=== PATIENT | female | born 1940 | race Caucasian/White ===

== ENCOUNTER 2018-01-15 08:25 | Day surgery (SDC) | payer MEDICARE, BC ==
[~2018-01-15 08:25] MED LIST: Cefuroxime 10 MG/ML SYRINGE EYERT SCH; Lidocaine 1% PF 2 ML SDV INJECT SCH; Pilocarpine 4% Ophth Soln 15 ML Bot EYERT SCH
[2018-01-15] MEDS: Polymyxin B/Trimethoprim 10 ML Bottle EYERT SCH ×3 (08:58→10:36)
[2018-01-15] MEDS: Brimonidine 0.2% Ophth Soln 5 ML Bottle EYERT SCH ×3 (09:03→10:36)
[2018-01-15] MEDS: Phenylephrine 2.5% Ophth Soln 2 ML Bot EYERT SCH ×5 (09:08→10:09)
[2018-01-15] MEDS: Tropicamide 1% Ophth Soln 3 ML Bottle EYERT SCH ×4 (09:13→09:58)
--- NOTE | 2018-01-15 09:14 | PCM.PREANE ---
Preanesthetic Assessment - Anesthesia/Transfusion/Family Hx Anesthesia History: Prior Anesthesia Reaction Type of Anesthesia Reaction: Excessive Somnolence Family History of Anesthesia Reaction: No - Review of Systems General: No Symptoms Pulmonary: Cough (Chronic cough mostly in the mornings. Nonproductive.) Cardiovascular: Palpitations (Negative cardiac workup a few years ago. PVCs noted. Negative Stress Test. Murmur noted. ), Other (Hypertension) Neurological: No Symptoms Other: Reports: None - Physical Assessment NPO Status Date: 01/15/18 NPO Status Time: 05:00 O2 Sat by Pulse Oximetry: 98 Respiratory Rate: 16 Vital Signs: Last Vital Signs Temp 36.5 C 01/15/18 08:48 Pulse 58 L 01/15/18 08:48 Resp 16 01/15/18 08:48 BP 138/77 01/15/18 08:48 Pulse Ox 98 01/15/18 08:48 Height: 1.52 m Weight: 65.771 kg ASA Class: 2 Mental Status: Alert & Oriented x3 Airway Class: Mallampati = 2 Dentition: Reports: Partial Thyro-Mental Finger Breadths: 2 Mouth Opening Finger Breadths: 3 ROM/Head Extension: Full Lungs: Clear to Auscultation, Normal Respiratory Effort Cardiovascular: Regular Rate, Regular Rhythm, Murmurs - Allergies Allergies/Adverse Reactions: Allergies Allergy/AdvReac Type Severity Reaction Status Date / Time No Known Allergies Allergy Verified 01/14/18 12:47 - Anesthesia Plan Beta Jeremiah: Metoprolol Med Last Dose Date: 01/15/18 (0600) - Acknowledgements Anesthesia Type Planned: MAC Pt an Appropriate Candidate for the Planned Anesthesia: Yes Alternatives and Risks of Anesthesia Discussed w Pt/Guardian: Yes Pt/Guardian Understands and Agrees with Anesthesia Plan: Yes PreAnesthesia Questionnaire - HOME MEDS Home Medications: Home Meds Calcium Carbonate [Tums Extra Strength] 750 mg PO DAILY PRN 01/14/18 [History] Hydrochlorothiazide 12.5 mg PO DAILY 01/14/18 [History] Latanoprost [Xalatan] 1 drop OP BEDTIME 01/14/18 [History] Lisinopril 10 mg PO DAILY 01/14/18 [History] Metoprolol Succinate [Toprol XL 100mg] 100 mg PO DAILY 01/14/18 [History] - CURRENT (IN HOUSE) MEDS Current Meds: Current Medications Brimonidine Tartrate (Alphagan 0.2% Ophth Soln) 0 ml EYERT ASDIRECTED NANCY Stop: 01/15/18 18:00 Last Admin: 01/15/18 09:03 Dose: 1 drop Cefuroxime Sodium (Zinacef) 0 mg EYERT ASDIRECTED NANCY Stop: 01/15/18 18:00 Lidocaine HCl (Xylocaine-Mpf 1%) 0 ml INJECT ASDIRECTED NANCY Stop: 01/15/18 18:00 Phenylephrine HCl (Mario-Synephrine 2.5% Ophth Soln) 0 ml EYERT ASDIRECTED NANCY Stop: 01/15/18 18:00 Pilocarpine HCl (Pilocar 4% Ophth Soln) 0 ml EYERT ASDIRECTED NANCY Stop: 01/15/18 18:00 Polymyxin/Trimethoprim Sulfate (Polytrim Ophth Soln) 0 ml EYERT ASDIRECTED NANCY Stop: 01/15/18 18:00 Last Admin: 01/15/18 08:58 Dose: 1 drop Tetracaine HCl (Tetracaine 0.5% Steri-Unit Anastasia) 0 ml EYERT ASDIRECTED NANCY Stop: 01/15/18 18:00 Tropicamide (Mydriacyl 1% Ophth Soln) 0 ml EYERT ASDIRECTED NANCY Stop: 01/15/18 18:00
[2018-01-15] MEDS: Tetracaine HCl/PF 0.5% 4 ML Bottle EYERT SCH ×2 (10:01→10:23)
--- NOTE | 2018-01-15 10:35 | PCM48HPAN ---
Post Anesthesia Note - EVALUATION WITHIN 48HRS OF ANESTHETIC Vital Signs in Normal Range: Yes Patient Participated in Evaluation: Yes Respiratory Function Stable: Yes Airway Patent: Yes Cardiovascular Function Stable: Yes Hydration Status Stable: Yes Pain Control Satisfactory: Yes Nausea and Vomiting Control Satisfactory: Yes Mental Status Recovered: Yes
== END 2018-01-15 10:49 | disposition home or self-care (01) ==
LOC: JD.SDS 08:25
PROVIDERS: ATTEND Ophthalmology
DX: H25.813 Combined forms of age-related cataract, bilateral (principal); I10 Essential (primary) hypertension; E78.00 Pure hypercholesterolemia, unspecified; Z87.891 Personal history of nicotine dependence; H40.1132 Primary open-angle glaucoma, bilateral, moderate stage; H35.363 Drusen (degenerative) of macula, bilateral; H02.831 Dermatochalasis of right upper eyelid; H35.3131 Nonexudative age-related macular degeneration, bilateral, early dry stage; Z79.899 Other long term (current) drug therapy
CPT/HCPCS: 66984; C1780; J0697; J2001; A9270-GY

== ENCOUNTER 2019-06-18 11:50 | Emergency (ER) | payer MEDICARE, BC ==
[2019-06-18] MEDS ORDERED: Sodium Chloride 0.9% 10 ML Syringe FLUSH PRN (12:18)
[2019-06-18] MEDS ORDERED: Glucagon,Human Recombinant 1 MG Vial IVPUSH ONE (12:18)
[2019-06-18] MEDS ORDERED: fentaNYL 100 MCG/2 ML SDV IVPUSH ONE (12:19)
--- NOTE | 2019-06-18 12:26 | EDM.PDOC ---
ED HPI GENERAL MEDICAL PROBLEM - General Chief Complaint: ENT Problem Stated Complaint: VOMITING/CANT KEEP FOOD DOWN Time Seen by Provider: 06/18/19 12:09 Source of Information: Reports: Patient, RN Notes Reviewed History Limitations: Reports: No Limitations - History of Present Illness INITIAL COMMENTS - FREE TEXT/NARRATIVE: Patient is a 78-year-old female who presents to the ED for the evaluation of a food impaction bolus. The patient states that she was eating pork roast last night, when she believes a piece of this got caught in her distal esophagus around 4 PM yesterday. She notes she is having difficulty swallowing since then. Typically symptoms last about an hour and then they subside usually, and she notes that she has issues with this roughly 3 or 4 times per year. She is able to swallow however she states everything keeps coming back up. She is not having any chest pain, shortness of breath, nausea or vomiting, but she has not been able to keep much down for foods or fluids. She further notes an increased production in saliva with this. She notes that she has had upper GIs in the past, but she has not had any sort of esophageal dilatation for this that she can remember. Abdomen Pain Score (Numeric/FACES): 6 - Related Data Allergies Allergy/AdvReac Type Severity Reaction Status Date / Time No Known Allergies Allergy Verified 06/18/19 12:09 Home Meds: Home Meds Calcium Carbonate [Tums Extra Strength] 750 mg PO DAILY PRN 01/14/18 [History] Metoprolol Succinate [Toprol XL 100mg] 100 mg PO DAILY 01/14/18 [History] Calcium Carbonate [Tums] 1 tab PO BEDTIME PRN 03/29/18 [History] Latanoprost/Pf [Latanoprost 0.005% Eye Drop] 1 drop EYEBOTH BEDTIME 03/29/18 [ History] Lisinopril 10 mg PO DAILY 03/29/18 [History] Aspirin 81 mg PO DAILY 06/18/19 [History] Propylene Glycol/Peg 400 [Systane 0.3-0.4% Eye Drops] 10 ml OP DAILY PRN [History] Past Medical History HEENT History: Reports: Cataract, Glaucoma, Impaired Vision Cardiovascular History: Reports: High Cholesterol, Hypertension Respiratory History: Reports: Pneumonia, Recurrent Gastrointestinal History: Reports: [employer]IST History: Reports: Musculoskeletal History: Reports: Back Pain, Chronic, Osteoarthritis Neurological History: Reports: None Psychiatric History: Reports: None Endocrine/Metabolic History: Reports: None Hematologic History: Reports: None Immunologic History: Reports: None Oncologic (Cancer) History: Reports: Squamous Cell Carcinoma Dermatologic History: Reports: Other (See Below) Other Dermatologic History: skin cancer-by the nose-surgically removed - Infectious Disease History Infectious Disease History: Reports: None - Past Surgical History Head Surgeries/Procedures: Reports: None HEENT Surgical History: Reports: Cataract Surgery, Tonsillectomy Female Surgical History: Reports: Tubal Ligation Oncologic Surgical History: Reports: Other (See Below) Social & Family History - Tobacco Use Smoking Status *Q: Never Smoker - Caffeine Use Caffeine Use: Reports: Coffee - Recreational Drug Use Recreational Drug Use: No - Living Situation & Occupation Living situation: Reports: , with Spouse Occupation: Retired ED ROS ENT - Review of Systems Review Of Systems: See Below Constitutional: Reports: No Symptoms HEENT: Reports: No Symptoms Respiratory: Denies: Shortness of Breath Cardiovascular: Denies: Chest Pain Endocrine: Reports: No Symptoms GI/Abdominal: Reports: Difficulty Swallowing (food impaction bolus). Denies: Abdominal Pain, Constipation, Diarrhea, Nausea, Vomiting : Reports: No Symptoms Musculoskeletal: Reports: No Symptoms Skin: Reports: No Symptoms Neurological: Reports: No Symptoms Psychiatric: Reports: No Symptoms Hematologic/Lymphatic: Reports: No Symptoms ED EXAM, ENT - Physical Exam Exam: See Below Exam Limited By: No Limitations General Appearance: Alert, WD/WN, No Apparent Distress (pt has emesis bag at bedside, and keeps spitting saliva into this) Mouth/Throat: Normal Inspection, Normal Gums, Normal Lips, Normal Oropharynx, Normal Teeth Head: Atraumatic, Normocephalic Neck: Normal Inspection, Supple, Non-Tender, Full Range of Motion Respiratory/Chest: No Respiratory Distress, Lungs Clear, Normal Breath Sounds, No Accessory Muscle Use, Chest Non-Tender Cardiovascular: Normal Peripheral Pulses, Regular Rate, Rhythm, No Murmur GI/Abdominal: Normal Bowel Sounds, Soft, Non-Tender, No Distention, No Mass Extremities: Normal Inspection, Normal Capillary Refill Neurological: Alert, Oriented, Normal Cognition, No Motor/Sensory Deficits Psychiatric: Normal Affect, Normal Mood Skin: Warm, Dry, Intact, Normal Color, No Rash Course - Vital Signs Last Recorded V/S: Last Vital Signs Temp 98.5 F 06/18/19 13:10 Pulse 94 06/18/19 13:10 Resp 16 06/18/19 13:10 BP 189/104 H 06/18/19 13:10 Pulse Ox 100 06/18/19 13:10 - Orders/Labs/Meds Orders: Active Orders 24 hr Category Date Time Status Peripheral IV Care [RC] . DIRECTED Care 06/18/19 12:18 Active Peripheral IV Insertion Adult [OM.PC] Stat Oth 06/18/19 12:18 Ordered Meds: Medications Discontinued Medications Generic Name Dose Route Start Last Admin Trade Name Freq PRN Reason Stop Dose Admin Fentanyl 50 mcg 06/18/19 12:19 06/18/19 12:30 Sublimaze IVPUSH 06/18/19 12:20 50 mcg ONETIME ONE Administration Glucagon 1 mg 06/18/19 12:18 06/18/19 12:34 Glucagen IVPUSH 06/18/19 12:19 1 mg ONETIME ONE Administration Sodium Chloride 10 ml 06/18/19 12:18 06/18/19 12:32 Saline Flush FLUSH 10 ml ASDIRECTED PRN Administration Keep Vein Open - Re-Assessments/Exams Free Text/Narrative Re-Assessment/Exam: 06/18/19 12:26 Patient resents to the ED for evaluation of a food impaction bolus. Did order IV be placed with 1 mg glucagon, 50 g of fentanyl to be given, patient will be given Cola to drink after these meds been given to see if this helps dislodge the bolus, plan is to consult surgery if these measures are unsuccessful. 06/18/19 13:19 Patient was observed, after medications were given, and she believes that the food bolus has emptied in her stomach at this time. We'll discharge her home with general recommendations. Departure - Departure Time of Disposition: 13:20 Disposition: Home, Self-Care 01 Condition: Fair Clinical Impression: Food impaction of esophagus Qualifiers: Encounter type: initial encounter Qualified Code(s): T18.128A - Food in esophagus causing other injury, initial encounter - Discharge Information *PRESCRIPTION DRUG MONITORING PROGRAM REVIEWED*: No *COPY OF PRESCRIPTION DRUG MONITORING REPORT IN PATIENT [place]: No Instructions: Dysphagia Eating Plan, Bite Size Food Referrals: Sina Florentino MD [Primary Care Provider] - Forms: ED Department Discharge Additional Instructions: You were evaluated in the ER today regarding your food impaction bolus stuck in your esophagus. You were given a combination IV medications, and this seemed to help the food bolus pass in to your stomach. Recommend that you follow up with a general surgeon of choice, for a possible upper endoscopy with esophageal dilatation to help relieve further episodes of this. Our [facility] clinic number is [phone], the [facility] number is . Recommend that you try to stay away from meats, as these are the most common offender food impaction boluses, if you do want to eat meat, make sure you you chew your food very thoroughly. Please return to the ED if your symptoms should change or worsen. - My Orders Last 24 Hours: My Active Orders 06/18/19 12:18 Peripheral IV Care [RC] . DIRECTED Peripheral IV Insertion Adult [OM.PC] Stat - Assessment/Plan Last 24 Hours: My Active Orders 06/18/19 12:18 Peripheral IV Care [RC] . DIRECTED Peripheral IV Insertion Adult [OM.PC] Stat
== END 2019-06-18 13:44 | disposition home or self-care (01) ==
LOC: JD.ED 11:50
DX: T18.128A Food in esophagus causing other injury, initial encounter (principal); I10 Essential (primary) hypertension; H40.9 Unspecified glaucoma; Z79.899 Other long term (current) drug therapy; Z79.82 Long term (current) use of aspirin; Y93.89 Activity, other specified
CPT/HCPCS: 96374; 96375; 99283; J1610; J3010

== ENCOUNTER 2024-05-06 09:09 | Day surgery (SDC) | payer MEDICARE, BC ==
[~2024-05-06 09:09] MED LIST changes: -Cefuroxime 10 MG/ML SYRINGE EYERT SCH; +HYDROmorphone 0.5 MG/0.5 ML Syringe IVPUSH PRN; -Lidocaine 1% PF 2 ML SDV INJECT SCH; +Ondansetron 4 MG/2 ML SDV IVPUSH PRN; -Pilocarpine 4% Ophth Soln 15 ML Bot EYERT SCH; +Sodium Chloride 0.9% 10 ML Syringe FLUSH PRN; +fentaNYL 100 MCG/2 ML SDV IVPUSH PRN
[2024-05-06] MEDS: Lactated Ringers 1,000 ML IV SCH (10:10)
[2024-05-06] MEDS ORDERED: Propofol 200 MG/20 ML SDV ONE (10:37)
[2024-05-06] MEDS ORDERED: Lidocaine 1% 2 ML ONE (10:38)
[2024-05-06] MEDS: Iopamidol 755 Mg/ML 100 ML Bottle IVPUSH ONE (11:50)
[2024-05-06] MEDS: Sodium Chloride 0.9% 10 ML Syringe FLUSH SCH (11:50)
[2024-05-06] MEDS ORDERED: Sodium Chloride 0.9% 10 ML Syringe FLUSH PRN (12:00)
== END 2024-05-06 11:55 | disposition home or self-care (01) ==
LOC: JD.SDS 09:09
PROVIDERS: ATTEND Surgery
DX: K31.7 Polyp of stomach and duodenum (principal); K31.A0 Gastric intestinal metaplasia, unspecified; K22.10 Ulcer of esophagus without bleeding; K44.9 Diaphragmatic hernia without obstruction or gangrene; K22.2 Esophageal obstruction; K21.9 Gastro-esophageal reflux disease without esophagitis; I10 Essential (primary) hypertension; E78.00 Pure hypercholesterolemia, unspecified; Z88.5 Allergy status to narcotic agent; Z88.8 Allergy status to other drugs, medicaments and biological substances; Z79.899 Other long term (current) drug therapy; Z87.891 Personal history of nicotine dependence; Z79.82 Long term (current) use of aspirin
CPT/HCPCS: 43239; 71260; 74177; J2704; J3490; J7120; Q9967; 00731; 88305; 99100

== ENCOUNTER 2024-05-13 09:59 | Day surgery (SDC) | payer MEDICARE, BC ==
[~2024-05-13 09:59] MED LIST changes: -HYDROmorphone 0.5 MG/0.5 ML Syringe IVPUSH PRN; -Ondansetron 4 MG/2 ML SDV IVPUSH PRN; +Sodium Chloride 0.9% 10 ML Syringe FLUSH SCH; -fentaNYL 100 MCG/2 ML SDV IVPUSH PRN
[2024-05-13] MEDS: Lactated Ringers 1,000 ML IV SCH (10:50)
[2024-05-13] MEDS ORDERED: Lidocaine 1% 4 ML ONE (12:03)
[2024-05-13] MEDS ORDERED: Propofol 200 MG/20 ML SDV ONE ×3 (12:03→13:02)
[2024-05-13] MEDS ORDERED: dexmedeTOMIDine HCl 200 MCG/2 ML SDV ONE (13:05)
[2024-05-13] MEDS ORDERED: Metoclopramide 10 MG/2 ML SDV IVPUSH PRN (14:23)
== END 2024-05-13 14:45 | disposition home or self-care (01) ==
LOC: JD.SDS 09:59
PROVIDERS: ATTEND Surgery
DX: K31.7 Polyp of stomach and duodenum (principal); I10 Essential (primary) hypertension; E78.00 Pure hypercholesterolemia, unspecified; K21.9 Gastro-esophageal reflux disease without esophagitis; Z87.891 Personal history of nicotine dependence; Z79.899 Other long term (current) drug therapy; Z88.5 Allergy status to narcotic agent
CPT/HCPCS: 00731; 99100; J2704; J3490; J7120

== ENCOUNTER 2024-05-16 11:15 | Inpatient (IN) | payer MEDICARE, BC ==
[2024-05-16 11:14] LABS: HEMATOCRIT 43.9 % (37.0-47.0); HEMOGLOBIN 14.8 gm/dl (12.0-16.0); MEAN CORPUSCULAR HEMOGLOBIN 30.1 pg (28.0-32.0); MEAN CORPUSCULAR HGB CONC 33.7 g/dl (32.0-36.0); MEAN CORPUSCULAR VOLUME 89.4 fl (83.0-99.0); PLATELET COUNT,PLT 226 K/mm3 (150-400); RED BLOOD CELL COUNT 4.91 M/mm3 (4.10-5.30); WHITE BLOOD CELL COUNT,WBC 7.54 K/mm3 (3.9-11.3)
[2024-05-16] MEDS ORDERED: Ondansetron 4 MG/2 ML SDV ONE ×2 (11:20→15:58)
[2024-05-16] MEDS ORDERED: Rocuronium 50 MG/5 ML Vial ONE ×3 (11:20→14:56)
[2024-05-16] MEDS ORDERED: fentaNYL 250 MCG/5 ML SDV ONE (11:20)
[2024-05-16] MEDS ORDERED: Propofol 200 MG/20 ML SDV ONE ×14 (11:20→15:50)
[2024-05-16] MEDS ORDERED: dexmedeTOMIDine HCl 200 MCG/2 ML SDV ONE (11:23)
[2024-05-16] MEDS ORDERED: ceFAZolin 2 GM Vial ONE ×2 (11:24→15:54)
[2024-05-16] MEDS ORDERED: Lidocaine 1% PF 2 ML SDV ONE ×2 (11:29)
[2024-05-16] MEDS ORDERED: Lidocaine 1% 4 ML ONE (11:29)
[2024-05-16 11:48] LABS: ANION GAP 12.7 (5-15); BLOOD UREA NITROGEN,BUN 19 mg/dL (7-18); BUN/CREATININE RATIO 21.1 (14-18); CALCIUM 9.7 mg/dL (8.5-10.1); CARBON DIOXIDE,CO2 27 mEq/L (21-32); CHLORIDE,CL 102 mEq/L (98-107); CREATININE 0.9 mg/dL (0.55-1.02); ESTIMATED GFR 64 mL/min (>60); GLUCOSE RANDOM 113 mg/dL (70-99); MAGNESIUM 1.9 mg/dL (1.8-2.4); PHOSPHORUS 3.3 mg/dL (2.6-4.7); POTASSIUM,K 3.7 mEq/L (3.5-5.1); SODIUM,NA 138 mEq/L (136-145)
[2024-05-16] MEDS ORDERED: diphenhydrAMINE 50 MG/ML SDV ONE (12:00)
[2024-05-16] MEDS ORDERED: Dexamethasone 4 MG/ML 5 ML MDV ONE (12:00)
[2024-05-16] MEDS ORDERED: HYDROmorphone 0.5 MG/0.5 ML Syringe ONE ×6 (12:09→16:08)
[2024-05-16] MEDS ORDERED: fentaNYL 100 MCG/2 ML SDV ONE ×2 (12:15→13:32)
[2024-05-16] MEDS ORDERED: metroNIDAZOLE/Normal Saline 100 ML ONE ×2 (12:30→12:33)
[2024-05-16] MEDS: metroNIDAZOLE/Normal Saline 500 MG in Premix Bag 1 BAG IV ONE (12:31)
[2024-05-16] MEDS ORDERED: Lactated Ringers 1,000 ML ONE (12:39)
[2024-05-16] MEDS ORDERED: Metoprolol Tartrate 5 MG/5 ML SDV ONE (13:04)
[2024-05-16] MEDS: EPINEPHrine 1 MG/ML SDV ONE (13:14)
[2024-05-16] MEDS: Bupivacaine 0.5% 30 ML SDV ONE (13:14)
[2024-05-16] MEDS ORDERED: Lactated Ringers 1,000 ML IV SCH (13:45)
[2024-05-16] MEDS ORDERED: Lactated Ringers 1,000 ML IV ONE ×2 (14:15→16:45)
[2024-05-16] MEDS ORDERED: Sugammadex Sodium 200 MG/2 ML VIAL IV ONE (15:58)
[2024-05-16] MEDS ORDERED: Naloxone 0.4 MG/ML SDV ONE (16:43)
[2024-05-16] MEDS ORDERED: fentaNYL 100 MCG/2 ML SDV IVPUSH PRN (17:38)
[2024-05-16] MEDS ORDERED: HYDROmorphone 0.5 MG/0.5 ML Syringe IVPUSH PRN (17:38)
[2024-05-16] MEDS: Lactated Ringers 1,000 ML IV SCH ×2 (19:58→21:15)
[2024-05-16] MEDS: Acetaminophen 325 MG Tab PO SCH (21:07)
[2024-05-16] MEDS: HYDROmorphone 0.5 MG/0.5 ML Syringe IVPUSH PRN (21:37)
[2024-05-17 05:55] LABS: BASOPHILS PERCENT AUTO 0.1 % (0.0-1.0); BUN/CREATININE RATIO 16.7 (14-18); CALCIUM 9.2 mg/dL (8.5-10.1); CREATININE 0.9 mg/dL (0.55-1.02); EOSINOPHILS ABSOLUTE AUTO 0.1 K/mm3 (0.0-0.4); EOSINOPHILS PERCENT AUTO 0.7 % (0.0-6.0); EST CRCL DRUG DOSING (CG) 35.21 mL/min; HEMATOCRIT 34.2 % (37.0-47.0); IMMATURE GRAN ABSOLUTE AUTO 0.06 K/mm3 (0.00-0.05); IMMATURE GRAN PERCENT AUTO 0.7 % (0.0-0.4); LYMPHOCYTES ABSOLUTE AUTO 0.5 K/mm3 (1.0-4.8); LYMPHOCYTES PERCENT AUTO 5.7 % (24.0-44.0); MEAN CORPUSCULAR HEMOGLOBIN 30.1 pg (28.0-32.0); MEAN CORPUSCULAR HGB CONC 33.9 g/dl (32.0-36.0); MEAN CORPUSCULAR VOLUME 88.8 fl (83.0-99.0); MEAN PLATELET VOLUME 10.8 fl (9.4-12.3); MONOCYTES ABSOLUTE AUTO 0.5 K/mm3 (0.0-0.8); NEUTROPHILS ABSOLUTE AUTO 7.1 K/mm3 (1.8-7.7); NEUTROPHILS PERCENT AUTO 86.8 % (41.0-71.0); PLATELET COUNT,PLT 188 K/mm3 (150-400); RED BLOOD CELL COUNT 3.85 M/mm3 (4.10-5.30); WHITE BLOOD CELL COUNT,WBC 8.13 K/mm3 (3.9-11.3)
[2024-05-17 05:58] LABS: HEMOGLOBIN 11.6 gm/dl (12.0-16.0)
[2024-05-17] MEDS: oxyCODONE 5 MG Tab PO PRN (08:09)
[2024-05-17] MEDS: Lactated Ringers 1,000 ML IV SCH (16:30)
[2024-05-17] MEDS: Pantoprazole 40 MG in Sodium Chloride 0.9% 100 ML IV SCH (18:49)
[2024-05-17] MEDS: Ondansetron 4 MG/2 ML SDV IVPUSH PRN (20:06)
[2024-05-17] MEDS: Enoxaparin 30 MG/0.3 ML Syringe SUBCUT SCH (20:08)
[2024-05-18 05:35] LABS: HEMATOCRIT 28.1 % (37.0-47.0); MEAN CORPUSCULAR HEMOGLOBIN 29.9 pg (28.0-32.0); MEAN CORPUSCULAR HGB CONC 32.7 g/dl (32.0-36.0); MEAN CORPUSCULAR VOLUME 91.2 fl (83.0-99.0); MEAN PLATELET VOLUME 10.6 fl (9.4-12.3); PLATELET COUNT,PLT 167 K/mm3 (150-400); RED BLOOD CELL COUNT 3.08 M/mm3 (4.10-5.30); WHITE BLOOD CELL COUNT,WBC 5.66 K/mm3 (3.9-11.3)
[2024-05-18 05:52] LABS: HEMOGLOBIN 9.2 gm/dl (12.0-16.0)
[2024-05-18 05:53] LABS: ANION GAP 5.5 (5-15); BUN/CREATININE RATIO 11.3 (14-18); CALCIUM 8.4 mg/dL (8.5-10.1); CREATININE 0.8 mg/dL (0.55-1.02); EST CRCL DRUG DOSING (CG) 39.61 mL/min; MAGNESIUM 1.5 mg/dL (1.8-2.4); PHOSPHORUS 2.3 mg/dL (2.6-4.7); POTASSIUM,K 3.5 mEq/L (3.5-5.1)
[2024-05-18] MEDS: Magnesium Sulfate/Water Premix 2 GM in Premix Bag 1 BAG IV ONE (08:41)
[2024-05-18] MEDS: Metoprolol Succinate 50 MG Tab.ER PO SCH (08:41)
[2024-05-18] MEDS: Pantoprazole 40 MG Vial IV SCH (08:41)
[2024-05-18] MEDS: Lactated Ringers 1,000 ML IV SCH (13:41)
[2024-05-19 05:33] LABS: HEMATOCRIT 25.9 % (37.0-47.0); HEMOGLOBIN 8.8 gm/dl (12.0-16.0); MEAN CORPUSCULAR VOLUME 91.2 fl (83.0-99.0); MEAN PLATELET VOLUME 10.5 fl (9.4-12.3); PLATELET COUNT,PLT 158 K/mm3 (150-400); RED BLOOD CELL COUNT 2.84 M/mm3 (4.10-5.30); WHITE BLOOD CELL COUNT,WBC 4.56 K/mm3 (3.9-11.3)
[2024-05-19 05:46] LABS: ANION GAP 3.6 (5-15); BUN/CREATININE RATIO 8.6 (14-18); CALCIUM 8.4 mg/dL (8.5-10.1); CREATININE 0.7 mg/dL (0.55-1.02); EST CRCL DRUG DOSING (CG) 45.27 mL/min; POTASSIUM,K 3.6 mEq/L (3.5-5.1)
[2024-05-19] MEDS ORDERED: Docusate Sodium 100 MG Cap PO PRN (08:44)
[2024-05-19] MEDS ORDERED: Sodium Chloride 0.9% 10 ML Syringe FLUSH PRN (08:45)
[2024-05-20] MEDS: Pantoprazole 40 MG Tab.CR PO SCH (09:00)
== END 2024-05-20 10:48 | disposition home or self-care (01) | DRG 327 ==
LOC: JD.SDS 11:15 → JD.ICU 18:35 → JD.MS 05-19 12:06
PROVIDERS: ADMIT Surgery; ATTEND Surgery
PROC: 0D164Z9 Bypass Stomach to Duodenum, Percutaneous Endoscopic Approach (ICD-10-PCS; principal; 2024-05-16 12:30)
DX: K63.5 Polyp of colon (principal); K31.1 Adult hypertrophic pyloric stenosis; I10 Essential (primary) hypertension; M19.90 Unspecified osteoarthritis, unspecified site; E78.00 Pure hypercholesterolemia, unspecified; K21.9 Gastro-esophageal reflux disease without esophagitis; G89.29 Other chronic pain; M54.9 Dorsalgia, unspecified; H54.7 Unspecified visual loss; Z88.5 Allergy status to narcotic agent; Z88.8 Allergy status to other drugs, medicaments and biological substances; Z98.51 Tubal ligation status; Z98.49 Cataract extraction status, unspecified eye; Z90.89 Acquired absence of other organs; Z79.82 Long term (current) use of aspirin; Z79.899 Other long term (current) drug therapy; Z98.890 Other specified postprocedural states
CPT/HCPCS: 36415; 80048; 83735; 84100; 85025; 85027; 86850; 86900; 86901; 94760; 94761; 97161-GP; A9270-GY; J0171; J0665; J0690; J1100; J1170; J1200; J1650; J1836; J2310; J2405; J2470; J2704; J3010; J3475; J3490; J7120